=== PATIENT | male | born 1970 | race Caucasian/White ===

== ENCOUNTER 2023-11-11 20:17 | Emergency (ER) | payer SELFPAY ==
[~2023-11-11] VITALS: Ht 165.1 cm; Wt 69.9 kg
[2023-11-11 20:42] VITALS: BP 122/81; PULSE 60; RESP 18; TEMP 97.9; O2SAT 98
[2023-11-11] MEDS ORDERED: FAMO-92 PO (21:39)
[2023-11-11] MEDS ORDERED: ONDA-188 SL (21:39)
[2023-11-11 21:50] VITALS: BP 122/81; PULSE 60; RESP 18; TEMP 97.9; O2SAT 98
[2023-11-11] MEDS: FAMOTIDINE 20 MG TAB PO ONE (21:50)
[2023-11-11] MEDS: ONDANSETRON 4 MG ODT PO ONE (21:50)
== END 2023-11-11 21:50 | disposition home or self-care (01) ==
LOC: MED 20:17
DX: K29.70 Gastritis, unspecified, without bleeding (principal); Z79.899 Other long term (current) drug therapy
CPT/HCPCS: 99283; Q0162